=== PATIENT | male | born 1965 | race Caucasian/White ===

== ENCOUNTER 2019-06-05 11:59 | Emergency (ER) | payer OTHER ==
[2019-06-05 13:39] LABS: Basophils % (Auto) 0.6 % (0.0-1.8); Eosinophils # (Auto) 0.2 K/mm3 (0.0-0.4); Eosinophils % (Auto) 4.8 % (0.0-4.3); Hematocrit 40.4 % (35.5-45.6); Hemoglobin 13.5 gm/dl (11.8-15.2); Lymphocytes # (Auto) 1.5 K/mm3 (1.2-5.4); Lymphocytes % (Auto) 32.6 % (13.4-35.0); Mean Corpuscular HGB Conc 33 % (32-34); Mean Corpuscular Volume 77 fl (84-94); Monocytes # (Auto) 0.2 K/mm3 (0.0-0.8); Monocytes % (Auto) 5.1 % (0.0-7.3); Platelet Count 188 K/mm3 (140-440); Red Blood Count 5.23 M/mm3 (3.65-5.03); Red Cell Distribution Width 14.5 % (13.2-15.2)
--- NOTE | 2019-06-05 13:47 | XRay Report ---
CHEST 1 VIEW INDICATION: Chest Pain. COMPARISON: none FINDINGS: Support devices: None. Heart: Within normal limits. Lungs/Pleura: No acute air space or interstitial disease. Additional findings: None. IMPRESSION: No acute findings. Signer Name: Barak Kilgore Jr, MD Signed: 06/05/2019 1:43 PM Workstation Name: [id number]
[2019-06-05 13:48] LABS: INR 0.93 (0.87-1.13); Partial Thromboplastin Time 33.2 Sec. (24.2-36.6)
[2019-06-05 13:53] LABS: BUN/Creatinine Ratio 20; Blood Urea Nitrogen 12 mg/dL (9-20); Calcium 9.2 mg/dL (8.4-10.2); Hemolysis Index 6
--- NOTE | 2019-06-05 15:03 | Emergency Department Report ---
ED Chest Pain HPI - General Chief Complaint: Chest Pain Stated Complaint: CHEST PAIN Time Seen by Provider: 06/05/19 14:45 Source: EMS Mode of arrival: Stretcher Limitations: No Limitations - History of Present Illness Initial Comments: 54 y.o Patient was brought in by EMS complaining of chest tightness and pressure that has been occurring for three days. Patient was picked up by EMS at his doctors office. MD Complaint: chest pain -: Gradual Pain Location: left chest Pain Radiation: none Severity scale (0 -10): 5 Quality: tightness Consistency: intermittent Improves With: nothing Worsens With: inspiration Context: recent travel re: denies: nausea, vomting Other Symptoms: denies: cough Treatments Prior to Arrival: none - Related Data On Oral Contraceptives: No Home Medications Medication Instructions Recorded Confirmed Last Taken Aspirin EC [Halfprin EC] 81 mg PO QDAY 01/05/14 01/05/14 01/05/14 09:00 Benazepril (Nf) [Benazepril Tab] 5 mg PO QDAY 01/05/14 01/05/14 01/05/14 09:00 Meloxicam 15 mg PO QDAY 01/05/14 01/05/14 01/04/14 09:00 Metoprolol [Lopressor TAB] 25 mg PO QDAY 01/05/14 01/05/14 01/05/14 09:00 Previous Rx's Medication Instructions Recorded Last Taken Type Meclizine [Antivert] 25 mg PO QID PRN #20 tablet 01/05/14 Unknown Rx Famotidine [Pepcid] 20 mg PO BID #60 tablet 06/05/19 Unknown Rx Allergies Allergy/AdvReac Type Severity Reaction Status Date / Time No Known Allergies Allergy Unverified 01/05/14 15:39 Heart Score - HEART Score History: Slightly suspicious EKG: Non-specific Age: 45-65 Risk factors: 1-2 risk factors Troponin: < normal limit HEART Score: 3 ED Review of Systems ROS: Stated complaint: CHEST PAIN Other details as noted in HPI Comment: All other systems reviewed and negative Eyes: denies: eye pain ENT: denies: ear pain Respiratory: denies: cough Cardiovascular: chest pain Endocrine: denies: flushing Gastrointestinal: denies: nausea, vomiting ED Past Medical Hx - Past Medical History Hx Hypertension: Yes - Social History Smoking Status: Former Smoker (none x1995) Substance Use Type: Alcohol (occasional) - Medications Home Medications: Home Medications Medication Instructions Recorded Confirmed Last Taken Type Aspirin EC [Halfprin EC] 81 mg PO QDAY 01/05/14 01/05/14 01/05/14 09:00 History Benazepril (Nf) [Benazepril Tab] 5 mg PO QDAY 01/05/14 01/05/14 01/05/14 09:00 History Meclizine [Antivert] 25 mg PO QID PRN #20 tablet 01/05/14 Unknown Rx Meloxicam 15 mg PO QDAY 01/05/14 01/05/14 01/04/14 09:00 History Metoprolol [Lopressor TAB] 25 mg PO QDAY 01/05/14 01/05/14 01/05/14 09:00 History Famotidine [Pepcid] 20 mg PO BID #60 tablet 06/05/19 Unknown Rx ED Physical Exam - General Limitations: No Limitations General appearance: alert, in no apparent distress - Head Head exam: Present: atraumatic, normocephalic - Eye Eye exam: Present: normal appearance, PERRL, EOMI Pupils: Present: normal accommodation - ENT ENT exam: Present: normal exam, normal orophraynx - Neck Neck exam: Present: normal inspection - Respiratory Respiratory exam: Present: normal lung sounds bilaterally - Cardiovascular Cardiovascular Exam: Present: regular rate, normal rhythm - GI/Abdominal GI/Abdominal exam: Present: soft - Back Exam Back exam: Present: normal inspection - Neurological Exam Neurological exam: Present: alert, oriented X3, CN II-XII intact - Psychiatric Psychiatric exam: Present: normal affect - Skin Skin exam: Present: warm ED Course Vital Signs 06/05/19 06/05/19 06/05/19 12:06 12:17 12:30 Temperature 97.7 F Pulse Rate 53 L 58 L 55 L Respiratory 13 20 14 Rate Blood Pressure Blood Pressure 153/97 [Right] O2 Sat by Pulse 98 99 Oximetry 06/05/19 06/05/19 06/05/19 13:00 13:30 13:40 Temperature Pulse Rate 51 L 62 58 L Respiratory 14 12 18 Rate Blood Pressure Blood Pressure 144/97 [Right] O2 Sat by Pulse 100 98 98 Oximetry 06/05/19 06/05/19 06/05/19 14:00 14:30 15:00 Temperature Pulse Rate 55 L 52 L 67 Respiratory 14 16 13 Rate Blood Pressure Blood Pressure [Right] O2 Sat by Pulse 99 97 98 Oximetry 06/05/19 06/05/19 06/05/19 15:16 15:30 16:00 Temperature Pulse Rate 59 L 61 Respiratory 12 16 Rate Blood Pressure 145/96 136/95 Blood Pressure [Right] O2 Sat by Pulse 98 98 98 Oximetry 06/05/19 06/05/19 06/05/19 16:30 17:00 17:30 Temperature Pulse Rate 58 L 58 L 65 Respiratory 14 15 15 Rate Blood Pressure 124/83 137/94 139/99 Blood Pressure [Right] O2 Sat by Pulse 99 97 99 Oximetry 06/05/19 06/05/19 06/05/19 18:00 18:31 19:00 Temperature Pulse Rate 58 L 69 57 L Respiratory 13 13 14 Rate Blood Pressure 128/92 152/101 146/98 Blood Pressure [Right] O2 Sat by Pulse 100 98 98 Oximetry 06/05/19 06/05/19 06/05/19 19:15 19:30 20:00 Temperature 97.8 F Pulse Rate 60 57 L 62 Respiratory 13 14 18 Rate Blood Pressure 148/93 141/99 Blood Pressure 153/100 [Right] O2 Sat by Pulse 98 99 98 Oximetry ED Medical Decision Making - Lab Data Result diagrams: 06/05/19 13:20 06/05/19 13:20 - Medical Decision Making pain resolved, wants to go home. advised about admit for obs, he refused. - Differential Diagnosis gerd,anxiety, hypertensive urgency Critical care attestation.: If time is entered above; I have spent that time in minutes in the direct care of this critically ill patient, excluding procedure time. ED Disposition Clinical Impression: Chest pain Qualifiers: Chest pain type: other chest pain Qualified Code(s): R07.89 - Other chest pain; R07.8 - Other chest pain Disposition: - TO HOME OR SELFCARE Is pt being admited?: No Does the pt Need Aspirin: No Condition: Stable Instructions: Chest Pain (ED) Prescriptions: Famotidine [Pepcid] 20 mg PO BID #60 tablet Referrals: INEZ BAH MD [Staff Physician] - 3-5 Days [place] LUPE ESPARZA MD [Primary Care Provider] - 3-5 Days
[2019-06-05 20:33] VITALS: BP 141/99
== END 2019-06-05 20:10 | disposition home or self-care (01) ==
LOC: ED 11:59
DX: I10 Essential (primary) hypertension (principal); Z87.891 Personal history of nicotine dependence; Z79.82 Long term (current) use of aspirin; Z79.899 Other long term (current) drug therapy
CPT/HCPCS: 36415; 71045; 80048; 84484; 85025; 85379; 85610; 85730; 93005; 93010; 99284

== ENCOUNTER 2021-12-23 08:06 | Day surgery (SDC) | payer OTHER ==
[2021-12-23] MEDS ORDERED: LIDOCAINE MPF (2%) 20 MG/1 ML VIAL 5 ML ONE (08:21)
[2021-12-23] MEDS ORDERED: ONDANSETRON 4 MG/2 ML INJ ONE (08:21)
[2021-12-23] MEDS ORDERED: propofoL 200 MG/20 ML VIAL IV ONE (08:21)
[2021-12-23] MEDS ORDERED: fentaNYL 100 MCG/2 ML INJ ONE (08:21)
[2021-12-23] MEDS ORDERED: ACETAMINOPHEN 500 MG TAB PO ONE (08:39)
[2021-12-23] MEDS ORDERED: HYDROmorphone 1 MG/1 ML INJ IV PRN ×2 (08:39)
[2021-12-23] MEDS ORDERED: ONDANSETRON 4 MG/2 ML INJ IV PRN (08:39)
[2021-12-23] MEDS ORDERED: MAGNESIUM OXIDE 400 MG TAB PO ONE ×2 (08:39→08:45)
--- NOTE | 2021-12-23 08:41 | Anesthesia Day of Surgery ---
Anesthesia Day of Surgery - Day of Surgery Patient Examined: Yes Patient H&P Reviewed: Yes Patient is NPO: Yes
--- NOTE | 2021-12-23 08:42 | Anesthesia Consultation ---
Anesthesia Consult and Med Hx Date of service: 12/23/21 - Airway Anesthetic Teeth Evaluation: Good ROM Head & Neck: Adequate Mental/Hyoid Distance: Adequate Mallampati Class: Class II Intubation Access Assessment: Good - Pre-Operative Health Status ASA Pre-Surgery Classification: ASA2 Proposed Anesthetic Plan: General - Pulmonary Hx Smoking: Yes (STOPPED 1992) Hx Sleep Apnea: No (JOSE PRE SCREEN HIGH RISK) - Cardiovascular System Hx Hypertension: Yes (2009) - Central Nervous System Hx Back Pain: Yes (Gout) Hx Psychiatric Problems: No - Hematic Hx Anemia: No - Other Systems Hx Cancer: No
[2021-12-23] MEDS ORDERED: LACTATED RINGERS 1,000 ML ONE (08:45)
[2021-12-23] MEDS ORDERED: MIDAZOLAM 2 MG/2 ML INJ IV NR (09:00)
[2021-12-23] MEDS ORDERED: LACTATED RINGERS 1,000 ML IV SCH (09:00)
[2021-12-23] MEDS ORDERED: GABAPENTIN 300 MG CAP PO NR (09:00)
[2021-12-23] MEDS ORDERED: CELECOXIB 200 MG CAP PO NR (09:00)
[2021-12-23] MEDS ORDERED: ceFAZolin/Water 2 GM/20 ML 2 GM/20 ML SYRINGE IV ONE (09:13)
[2021-12-23] MEDS ORDERED: ceFAZolin/Water 2 GM/20 ML 2 GM/20 ML SYRINGE IV NR (09:16)
[2021-12-23] MEDS ORDERED: dexAMETHasone 20 MG/5 ML VIAL ONE (09:23)
[2021-12-23] MEDS ORDERED: PHENYLEPHRINE/NS 1,000 MCG/10 ML SYRINGE (OR USE) IV ONE (09:26)
[2021-12-23] MEDS ORDERED: SODIUM CHLORIDE 0.9% IRR 1,500 ML BOTTLE IR ONE (09:45)
[2021-12-23] MEDS ORDERED: KETOROLAC 30 MG/1 ML INJ ONE (09:55)
--- NOTE | 2021-12-23 09:59 | Short Stay Summary ---
Short Stay Documentation Date of service: 12/23/21 - History H&P: obtained from office - Allergies and Medications Current Medications: Allergies No Known Allergies Allergy (Verified 12/21/21 11:22) Home Medications Medication Instructions Recorded Confirmed Last Taken Type Aspirin EC [Halfprin EC] 81 mg PO QDAY 01/05/14 12/23/21 12/18/21 History Metoprolol [Lopressor TAB] 25 mg PO QDAY 01/05/14 12/23/21 12/22/21 11:00 H istory AtorvaSTATin [Lipitor] 20 mg PO QHS 12/21/21 12/23/21 12/22/21 History Loratadine [Claritin] 10 mg PO PRN PRN 12/21/21 12/21/21 12/22/21 History Valsartan [Diovan] 320 mg PO QDAY 12/21/21 12/23/21 12/22/21 23:00 History allopurinoL [Zyloprim] 100 mg PO QDAY 12/21/21 12/21/21 12/22/21 History Active Medications Celecoxib (Celecoxib 200 Mg Cap) 400 mg PO PREOP NR Stop: 12/23/21 12:00 Gabapentin (Gabapentin 300 Mg Cap) 300 mg PO PREOP NR Stop: 12/23/21 12:00 Hydromorphone HCl (Hydromorphone 1 Mg/1 Ml Inj) 0.25 mg IV Q10MIN PRN PRN Reason: Pain, Moderate (4-6) Stop: 12/23/21 20:00 Hydromorphone HCl (Hydromorphone 1 Mg/1 Ml Inj) 0.5 mg IV Q10MIN PRN PRN Reason: Pain , Severe (7-10) Stop: 12/23/21 20:00 Lactated Ringer's (Lactated Ringers) 1,000 mls @ 125 mls/hr IV DIRECT ELSIE Midazolam HCl (Midazolam 2 Mg/2 Ml Inj) 2 mg IV PREOP NR Stop: 12/23/21 23:59 Ondansetron HCl (Ondansetron 4 Mg/2 Ml Inj) 4 mg IV ONCE PRN PRN Reason: Nausea And Vomiting Stop: 12/23/21 12:00 - Brief post op/procedure progress note Date of procedure: 12/23/21 Pre-op diagnosis: phimosis Post-op diagnosis: same Procedure: circ Anesthesia: GETA Surgeon: DI ARENAS Estimated blood loss: minimal Pathology: list (foreskin) Specimen disposition: to lab Condition: stable - Hospital course Hospital course: ultram & norco on chart - Disposition Condition at discharge: Stable Disposition: 01 HOME / SELF CARE / HOMELESS Short Stay Discharge Plan Follow up with: AMBER CASTELLANOS MD [Primary Care Provider] - 7 Days
--- NOTE | 2021-12-23 10:20 | Operative Report ---
DATE OF SURGERY: 12/23/2021 PREOPERATIVE DIAGNOSIS: Phimosis. POSTOPERATIVE DIAGNOSIS: Phimosis. PROCEDURE: Circumcision. SURGEON: Carlos Galarza MD ANESTHESIA: General. ESTIMATED BLOOD LOSS: Minimal. FLUIDS: Crystalloid. COMPLICATIONS: No complications. INDICATIONS: This patient is a 56-year-old gentleman seen in the office with persistent pain and difficulty retracting his foreskin for several years. Exam was consistent with phimosis. Risks, benefits and complications were explained. The patient agreed to proceed with surgical intervention. DESCRIPTION OF PROCEDURE: The patient was taken to the operative suite, placed in a supine position. After adequate general anesthesia, he was prepped and draped in a sterile fashion. Foreskin was marked at the level of the coronal ridge. Dorsal and ventral slit were made and foreskin was circumferentially removed and sent for routine pathologic evaluation. Shaft skin was retracted. Adequate hemostasis was achieved. Shaft skin was reapproximated distal and proximal shaft skin was reapproximated and closed with 2-0 chromic in an interrupted fashion. Xeroform gauze was placed, Nelia and Cruz. The patient tolerated the procedure well and was extubated and taken to recovery room. He will go home on Ultram and [place] and we will remove this dressing in the morning. TID: [id number] RECEIPT: [id number] SAVAGE/LOUIS
[2021-12-23] MEDS ORDERED: HYDROcodone/ACETAMINOPHEN 5-325 MG TAB PO PRN (11:00)
[2021-12-23 11:43] VITALS: BP 140/95
--- NOTE | 2021-12-23 14:18 | Post Anesthesia Evaluation ---
- Post Anesthesia Evaluation Patient Participated: Yes Airway Patent: Yes Stable Respiratory Function: Yes Nausea/Vomiting: No Temp > 96.8F: Yes Pain Manageable: Yes Adequeate Hydration: Yes Anesthesia Complications: No Block Receding Appropriately: Not Applicable Patient on Ventilator: No
== END 2021-12-23 11:20 | disposition home or self-care (01) ==
LOC: OR 08:06
PROVIDERS: ATTEND Urology
DX: N47.1 Phimosis (principal); E78.00 Pure hypercholesterolemia, unspecified; I10 Essential (primary) hypertension; Z87.891 Personal history of nicotine dependence; Z79.82 Long term (current) use of aspirin; Z79.899 Other long term (current) drug therapy; Z80.8 Family history of malignant neoplasm of other organs or systems; Z98.890 Other specified postprocedural states
CPT/HCPCS: 54161; 88304; J0690; J1100; J1885; J2250; J2370; J2405; J2704; J3010; J7120